=== PATIENT | male | born 1945 | race Caucasian/White ===

== ENCOUNTER → 2021-03-02 | Outpatient (CLI) | payer MEDICARE ==
[~2021-03-02] MED LIST: ASPIR 8181 MG PO; ASPIR-LOW81 MG PO; BENADRYL 25MG C25 MG PO; BENICAR40 MG PO; CLARITIN10 MG PO; HYDROCHLOROTHIA25 MG PO; LOVASTATIN20 MG PO; MIRALAX17 GM PO; MULTIVITAMINS1 EAC1 PO; NORVASC 5 MG TAB5 MG PO; OMEGA-31000 MG PO; TOPROL XL25 MG PO; VITAMIN B-12500 MCG PO; VITAMIN D 11000 UNIT PO
== END ==
LOC: EXRD 09:05
DX: K76.0 Fatty (change of) liver, not elsewhere classified (principal)
CPT/HCPCS: 76700

== ENCOUNTER → 2021-10-02 | Outpatient (CLI) | payer MEDICARE | LOC: LAB 09:45 | DX: I10 Essential (primary) hypertension (principal) | CPT/HCPCS: 93005 ==